=== PATIENT | male | born 1945 | race Caucasian/White ===

== ENCOUNTER 2021-03-02 07:42 | Inpatient (IN) ==
[2021-03-02] MEDS ORDERED: Naloxone 0.4 MG/ML INJ IVP PRN (09:48)
[2021-03-02] MEDS ORDERED: Ondansetron 4 MG/2 ML VIAL IVP PRN (09:48)
[2021-03-02 10:23] LABS: INR 1.2; Prothrombin Time 13.6 Seconds (9.4-12.1)
[2021-03-02] MEDS: Acetaminophen 325 MG TABLET PO PRN ×2 (11:43→22:06)
[2021-03-02] MEDS: Ringers Solution, Lactated 1,000 ML IVC SCH ×2 (13:18→19:12)
[2021-03-02] MEDS: Piperacillin/Tazobactam 3.375 GM in 0.9 % Sodium Chloride Mini Bag 100 ML IVPB SCH (15:28)
[2021-03-02] MEDS ORDERED: Dextrose Gel 15 GM/37.5 ML TUBE PO PRN ×2 (17:06)
[2021-03-02] MEDS ORDERED: *HR* Dextrose 50 % in Water (Vial) 50 ML VIAL IVP PRN (17:06)
[2021-03-02] MEDS ORDERED: D5% in Water 1,000 ML IVC PRN (17:06)
[2021-03-02] MEDS ORDERED: Ringers Solution, Lactated 1,000 ML IVC ONE (17:07)
[2021-03-02] MEDS: Lactobacillus 1 EACH CAP.SPRINK PO SCH (20:16)
[2021-03-02] MEDS ORDERED: Melatonin 3 MG TABLET PO PRN (21:00)
[2021-03-03] MEDS: Piperacillin/Tazobactam 3.375 GM in 0.9 % Sodium Chloride Mini Bag 100 ML IVPB SCH ×3 (00:15→17:32)
[2021-03-03] MEDS: *HR* Enoxaparin 40 MG/0.4 ML SYRINGE SQ SCH (05:49)
[2021-03-03 06:43] LABS: Basophils % 0.2 %; Eosinophils % 0.1 %; Hemoglobin 10.9 g/dL (12.9-16.9); Immature Granulocytes % 0.6 % (0-4); Lymphocytes # 0.9 K/mcL (0.6-4.6); Lymphocytes % 8.8 %; Mean Corpuscular HGB Conc 34.1 g/dL (31.6-35.5); Mean Corpuscular Hemoglobin 32.8 pg (28.0-33.3); Mean Corpuscular Volume 96.4 fL (83.0-100.0); Mean Platelet Volume 11.5 fL (9.4-12.4); Monocytes # 0.3 K/mcL (0.0-1.3); Monocytes % 2.8 %; Neutrophils # 8.9 K/mcL (1.6-8.9); Platelet Count 143 K/mcL (140-400); Red Blood Count 3.32 M/mcL (4.19-5.50); Red Cell Distribution Width 13.1 % (11.5-14.5); Segmented Neutrophils % 87.5 %; White Blood Count 10.2 K/mcL (4.3-11.1)
[2021-03-03 07:04] LABS: Alanine Aminotransferase 8 Units/L (7-52); Albumin 3.3 g/dL (3.5-5.7); Albumin/Globulin Ratio 1.4 (1.1-2.2); Alkaline Phosphatase 78 Units/L (34-104); Aspartate Amino Transferase 12 Units/L (13-39); BUN/Creatinine Ratio 15 (6-26); Bilirubin,Total 1.6 mg/dL (0.3-1.0); Blood Urea Nitrogen 12 mg/dL (8-23); Calcium 7.8 mg/dL (8.6-10.3); Carbon Dioxide 24 mEq/L (23-29); Chloride 106 mEq/L (98-107); Globulin 2.3 g/dL (2.4-3.5); Glucose 92 mg/dL (70-105); Magnesium 1.9 mg/dL (1.6-2.6); Osmolality,Calculated 281 (280-300); Phosphorous 1.2 mg/dL (2.7-4.5); Potassium 3.1 mEq/L (3.5-5.1); Sodium 136 mEq/L (136-145); Total Protein 5.6 g/dL (6.4-8.9); eGFR For African Americans > 60 (> 60); eGFR For Non-African Americans > 60 (> 60)
[2021-03-03] MEDS: Acetaminophen 325 MG TABLET PO PRN (07:15)
[2021-03-03 07:21] LABS: Folate 12.7 ng/mL (3.0-16.0)
[2021-03-03] MEDS ORDERED: *HR* Midazolam HCl 2 MG/2 ML VIAL ONE (07:33)
[2021-03-03] MEDS ORDERED: *HR* Rocuronium Bromide 50 MG/5 ML VIAL ONE (07:33)
[2021-03-03] MEDS ORDERED: *HR* FentaNYL (PF) 100 MCG/2 ML VIAL ONE (07:33)
[2021-03-03] MEDS ORDERED: Lidocaine -MPF 2% 2 ML VIAL ONE (07:33)
[2021-03-03] MEDS ORDERED: Lidocaine HCL 4 ML Topical Solution (Laryng-O-Jet Kit Sterile Pak) TP ONE (07:33)
[2021-03-03] MEDS ORDERED: Ondansetron 4 MG/2 ML VIAL ONE (07:33)
[2021-03-03] MEDS ORDERED: *HR* Propofol 200 MG/20 ML VIAL IVP ONE (07:33)
[2021-03-03] MEDS ORDERED: *HR* Succinylcholine 200 MG/10 ML VIAL IVP ONE (07:33)
[2021-03-03 07:39] LABS: Platelet Estimate Slight Decrease (Normal)
[2021-03-03 07:42] LABS: INR 1.4; Prothrombin Time 16.4 Seconds (9.4-12.1)
[2021-03-03] MEDS ORDERED: Bupivacaine 0.5%-Epi 1:200,000 50 ML VIAL ONE (08:28)
[2021-03-03] MEDS ORDERED: Albuterol 2.5 MG/3 ML NEBULIZER IH ONE (08:40)
[2021-03-03] MEDS ORDERED: Albuterol 2.5 MG/3 ML NEBULIZER IH PRN (08:41)
[2021-03-03] MEDS ORDERED: *HR* FentaNYL (PF) 100 MCG/2 ML VIAL IVP PRN (08:41)
[2021-03-03] MEDS ORDERED: Ondansetron 4 MG/2 ML VIAL IVP PRN (08:41)
[2021-03-03] MEDS ORDERED: Albuterol 2.5 MG/3 ML NEBULIZER ONE (08:46)
[2021-03-03] MEDS ORDERED: lisinopriL 5 MG TABLET PO SCH (09:00)
[2021-03-03] MEDS ORDERED: EPHEDrine 50 MG/ML VIAL ONE (09:16)
[2021-03-03] MEDS ORDERED: Sugammadex Sodium 200 MG/2 ML VIAL IV ONE (09:50)
[2021-03-03 10:38] LABS: Troponin I 0.05 ng/mL (< 0.04)
[2021-03-03 11:20] LABS: BUN/Creatinine Ratio 16 (6-26); Blood Urea Nitrogen 12 mg/dL (8-23); Calcium 7.4 mg/dL (8.6-10.3); Carbon Dioxide 22 mEq/L (23-29); Chloride 107 mEq/L (98-107); Glucose 105 mg/dL (70-105); Magnesium 2.5 mg/dL (1.6-2.6); Osmolality,Calculated 284 (280-300); Potassium 2.9 mEq/L (3.5-5.1); Sodium 137 mEq/L (136-145); eGFR For African Americans > 60 (> 60); eGFR For Non-African Americans > 60 (> 60)
[2021-03-03 11:28] LABS: Troponin I < 0.03 ng/mL (< 0.04)
[2021-03-03] MEDS: Nicotine 21 MG PATCH.TD24 TD SCH (13:05)
[2021-03-03] MEDS: Lactobacillus 1 EACH CAP.SPRINK PO SCH ×2 (13:05→22:05)
[2021-03-03] MEDS: (Abiraterone Acetate [Zytiga] 250 MG Tablet) PO SCH (13:06)
[2021-03-04] MEDS: Piperacillin/Tazobactam 3.375 GM in 0.9 % Sodium Chloride Mini Bag 100 ML IVPB SCH ×3 (00:58→16:20)
[2021-03-04] MEDS: *HR* Enoxaparin 40 MG/0.4 ML SYRINGE SQ SCH (04:52)
[2021-03-04 06:12] LABS: Basophils % 0.1 %; Hematocrit 26.1 % (37.5-50.1); Hemoglobin 8.8 g/dL (12.9-16.9); Immature Granulocytes % 0.8 % (0-4); Immature Platelets 6.5 % (1.1-6.1); Lymphocytes # 0.4 K/mcL (0.6-4.6); Lymphocytes % 3.6 %; Mean Corpuscular HGB Conc 33.7 g/dL (31.6-35.5); Mean Corpuscular Hemoglobin 33.1 pg (28.0-33.3); Mean Corpuscular Volume 98.1 fL (83.0-100.0); Mean Platelet Volume 11.4 fL (9.4-12.4); Monocytes # 0.4 K/mcL (0.0-1.3); Neutrophils # 9.7 K/mcL (1.6-8.9); Platelet Count 138 K/mcL (140-400); Red Blood Count 2.66 M/mcL (4.19-5.50); Red Cell Distribution Width 13.2 % (11.5-14.5); Segmented Neutrophils % 91.5 %; White Blood Count 10.6 K/mcL (4.3-11.1)
[2021-03-04 06:33] LABS: Alanine Aminotransferase 9 Units/L (7-52); Albumin/Globulin Ratio 1.3 (1.1-2.2); Alkaline Phosphatase 68 Units/L (34-104); Aspartate Amino Transferase 12 Units/L (13-39); BUN/Creatinine Ratio 17 (6-26); Bilirubin,Total 0.8 mg/dL (0.3-1.0); Blood Urea Nitrogen 13 mg/dL (8-23); Calcium 7.5 mg/dL (8.6-10.3); Carbon Dioxide 25 mEq/L (23-29); Chloride 108 mEq/L (98-107); Globulin 2.3 g/dL (2.4-3.5); Glucose 145 mg/dL (70-105); Osmolality,Calculated 289 (280-300); Potassium 3.4 mEq/L (3.5-5.1); Sodium 138 mEq/L (136-145); Total Protein 5.3 g/dL (6.4-8.9); eGFR For African Americans > 60 (> 60); eGFR For Non-African Americans > 60 (> 60)
[2021-03-04] MEDS ORDERED: Potassium Chloride Elixir 20 MEQ/15 ML UDC PO ONE (08:13)
[2021-03-04] MEDS: Lactobacillus 1 EACH CAP.SPRINK PO SCH (09:34)
[2021-03-04] MEDS: Nicotine 21 MG PATCH.TD24 TD SCH (09:46)
[2021-03-04 12:20] LABS: Hematocrit 27.8 % (37.5-50.1); Hemoglobin 9.4 g/dL (12.9-16.9)
[2021-03-04] MEDS ORDERED: Potassium Phosphate 44 MEQ in 0.9 % Sodium Chloride 250 ML IVPB ONE (12:50)
[2021-03-04] MEDS: (Abiraterone Acetate [Zytiga] 250 MG Tablet) PO SCH (13:07)
[2021-03-04 15:38] LABS: Amorphous Sediment,Urine Few per hpf (None-Few); Bacteria,Urine Few per hpf (None-Few); Bilirubin,Urine Negative (Negative); Blood,Urine Small (Negative); Clarity,Urine Clear (Clear); Color,Urine Yellow (Yellow); Glucose,Urine (UA) 30 mg/dL (Normal); Ketones,Urine Trace mg/dL (Negative); Leukocyte Esterase,Urine Negative (Negative); Nitrite,Urine Negative (Negative); Protein,Urine 100 mg/dL (Neg-Trace); RBC,Urine 0-3 per hpf (0-3); Specific Gravity,Urine > 1.030 (1.010-1.025); Squamous Epithelial Cell,Urine Few per hpf (None-Few); Urobilinogen,Urine >=8.0 mg/dL (Normal); WBC,Urine 0-3 per hpf (0-3)
[2021-03-05] MEDS ORDERED: Potassium Phosphate 44 MEQ in 0.9 % Sodium Chloride 250 ML IVPB ONE (00:55)
[2021-03-05 03:19] LABS: Basophils % 0.1 %; Eosinophils # 0.1 K/mcL (0.0-0.6); Eosinophils % 0.7 %; Hematocrit 26.2 % (37.5-50.1); Hemoglobin 8.7 g/dL (12.9-16.9); Immature Granulocytes % 0.6 % (0-4); Lymphocytes # 1.2 K/mcL (0.6-4.6); Lymphocytes % 12.4 %; Mean Corpuscular HGB Conc 33.2 g/dL (31.6-35.5); Mean Corpuscular Hemoglobin 32.1 pg (28.0-33.3); Mean Corpuscular Volume 96.7 fL (83.0-100.0); Mean Platelet Volume 11.7 fL (9.4-12.4); Monocytes # 0.5 K/mcL (0.0-1.3); Monocytes % 5.4 %; Neutrophils # 7.6 K/mcL (1.6-8.9); Platelet Count 139 K/mcL (140-400); Red Blood Count 2.71 M/mcL (4.19-5.50); Red Cell Distribution Width 13.2 % (11.5-14.5); Segmented Neutrophils % 80.8 %; White Blood Count 9.4 K/mcL (4.3-11.1)
[2021-03-05] MEDS: Piperacillin/Tazobactam 3.375 GM in 0.9 % Sodium Chloride Mini Bag 100 ML IVPB SCH ×3 (03:43→17:21)
[2021-03-05] MEDS: Lactobacillus 1 EACH CAP.SPRINK PO SCH ×3 (03:44→23:23)
[2021-03-05 03:52] LABS: BUN/Creatinine Ratio 23 (6-26); Blood Urea Nitrogen 14 mg/dL (8-23); Calcium 7.4 mg/dL (8.6-10.3); Carbon Dioxide 22 mEq/L (23-29); Chloride 110 mEq/L (98-107); Glucose 100 mg/dL (70-105); Magnesium 2.4 mg/dL (1.6-2.6); Osmolality,Calculated 287 (280-300); Phosphorous 1.6 mg/dL (2.7-4.5); Potassium 3.8 mEq/L (3.5-5.1); Sodium 138 mEq/L (136-145); eGFR For African Americans > 60 (> 60); eGFR For Non-African Americans > 60 (> 60)
[2021-03-05] MEDS: *HR* Enoxaparin 40 MG/0.4 ML SYRINGE SQ SCH (05:30)
[2021-03-05] MEDS ORDERED: Iron Sucrose Complex 200 MG in 0.9 % Sodium Chloride 100 ML IVPB ONE (08:27)
[2021-03-05] MEDS: Nicotine 21 MG PATCH.TD24 TD SCH (12:08)
[2021-03-05] MEDS: (Abiraterone Acetate [Zytiga] 250 MG Tablet) PO SCH (12:08)
[2021-03-05] MEDS ORDERED: PREDNISONE 5 MG PO SCH (17:00)
[2021-03-05] MEDS: predniSONE 5 MG TABLET PO SCH (17:21)
[2021-03-06 03:20] LABS: Basophils % 0.2 %; Eosinophils # 0.2 K/mcL (0.0-0.6); Hematocrit 28.4 % (37.5-50.1); Hemoglobin 9.2 g/dL (12.9-16.9); Immature Granulocytes % 0.6 % (0-4); Lymphocytes # 1.4 K/mcL (0.6-4.6); Lymphocytes % 16.1 %; Mean Corpuscular HGB Conc 32.4 g/dL (31.6-35.5); Mean Corpuscular Hemoglobin 31.9 pg (28.0-33.3); Mean Corpuscular Volume 98.6 fL (83.0-100.0); Mean Platelet Volume 11.7 fL (9.4-12.4); Monocytes # 0.7 K/mcL (0.0-1.3); Monocytes % 7.8 %; Neutrophils # 6.2 K/mcL (1.6-8.9); Platelet Count 177 K/mcL (140-400); Red Blood Count 2.88 M/mcL (4.19-5.50); Red Cell Distribution Width 13.2 % (11.5-14.5); Segmented Neutrophils % 73.3 %; White Blood Count 8.5 K/mcL (4.3-11.1)
[2021-03-06 03:39] LABS: BUN/Creatinine Ratio 19 (6-26); Blood Urea Nitrogen 14 mg/dL (8-23); Carbon Dioxide 23 mEq/L (23-29); Chloride 109 mEq/L (98-107); Glucose 99 mg/dL (70-105); Osmolality,Calculated 289 (280-300); Phosphorous 3.1 mg/dL (2.7-4.5); Potassium 4.2 mEq/L (3.5-5.1); Sodium 139 mEq/L (136-145); eGFR For African Americans > 60 (> 60); eGFR For Non-African Americans > 60 (> 60)
[2021-03-06] MEDS ORDERED: *HR* OxyCODONE/APAP 5/325 TABLET PO PRN (06:46)
[2021-03-06] MEDS ORDERED: polyethylene glycoL 3350 17 GM POWD.PACK PO SCH (09:00)
[2021-03-06] MEDS ORDERED: Bisacodyl 10 MG RECTAL SUPPOSITORY RC SCH (09:00)
[2021-03-06] MEDS: Piperacillin/Tazobactam 3.375 GM in 0.9 % Sodium Chloride Mini Bag 100 ML IVPB SCH ×2 (09:01→09:05)
[2021-03-06] MEDS: predniSONE 5 MG TABLET PO SCH ×2 (09:05→16:27)
[2021-03-06] MEDS: Lactobacillus 1 EACH CAP.SPRINK PO SCH (09:05)
[2021-03-06] MEDS: Nicotine 21 MG PATCH.TD24 TD SCH (09:05)
[2021-03-06] MEDS: (Abiraterone Acetate [Zytiga] 250 MG Tablet) PO SCH (09:06)
[2021-03-06 09:36] VITALS: O2SAT 96
[2021-03-06 15:28] VITALS: BP 110/57; PULSE 53; TEMP 97.8
== END 2021-03-06 17:56 | disposition home or self-care (01) | DRG 853 ==
LOC: 3ANU → SUATTDRO 12:14
PROVIDERS: ADMIT Internal Medicine; ATTEND Internal Medicine

== ENCOUNTER 2021-06-23 10:23 | Inpatient (IN) ==
[2021-06-23] MEDS ORDERED: cefOXitin 2,000 MG in Water for inj. (sterile) 10 ML IVP ONE (10:48)
[2021-06-23] MEDS ORDERED: Ringers Solution, Lactated 1,000 ML IVC SCH ×2 (11:00→11:15)
[2021-06-23] MEDS ORDERED: Ondansetron 4 MG/2 ML VIAL IVP PRN ×2 (11:06→17:36)
[2021-06-23] MEDS ORDERED: Acetaminophen IV 1,000 MG/100 ML BAG IVPB PRN (11:06)
[2021-06-23] MEDS ORDERED: Ondansetron 4 MG/2 ML VIAL ONE (12:14)
[2021-06-23] MEDS ORDERED: Lidocaine -MPF 2% 5 ML VIAL ONE (12:14)
[2021-06-23] MEDS ORDERED: *HR* Propofol 200 MG/20 ML VIAL IVP ONE (12:14)
[2021-06-23] MEDS ORDERED: *HR* FentaNYL (PF) 100 MCG/2 ML VIAL ONE ×2 (12:14→15:10)
[2021-06-23] MEDS ORDERED: *HR* Rocuronium Bromide 50 MG/5 ML VIAL ONE ×2 (12:14→14:35)
[2021-06-23] MEDS ORDERED: EPHEDrine 50 MG/ML VIAL ONE (13:26)
[2021-06-23] MEDS ORDERED: Sugammadex Sodium 200 MG/2 ML VIAL IV ONE (16:14)
[2021-06-23] MEDS ORDERED: Ketorolac 30 MG/ML VIAL ONE (16:22)
[2021-06-23] MEDS: *HR* FentaNYL (PF) 100 MCG/2 ML VIAL IVP PRN ×4 (16:35→17:00)
[2021-06-23] MEDS ORDERED: Naloxone 0.4 MG/ML INJ IVP PRN (17:36)
[2021-06-23] MEDS: 0.9 % Sodium Chloride 1,000 ML IVC SCH (17:51)
[2021-06-23] MEDS: predniSONE 5 MG TABLET PO SCH (18:41)
[2021-06-23] MEDS: Morphine Sulfate Oral CONC 10 MG/0.5 ML ORAL.SYG SL PRN (20:15)
[2021-06-23] MEDS: cefOXitin 1,000 MG in Water for inj. (sterile) 10 ML IVP SCH (21:13)
[2021-06-24] MEDS: Morphine Sulfate Oral CONC 10 MG/0.5 ML ORAL.SYG SL PRN ×3 (00:49→20:39)
[2021-06-24 03:06] LABS: Basophils % 0.1 %; Hematocrit 32.4 % (37.5-50.1); Immature Granulocytes % 0.2 % (0-4); Lymphocytes # 0.5 K/mcL (0.6-4.6); Mean Corpuscular Hemoglobin 32.7 pg (28.0-33.3); Mean Corpuscular Volume 96.4 fL (83.0-100.0); Mean Platelet Volume 11.2 fL (9.4-12.4); Monocytes # 0.8 K/mcL (0.0-1.3); Monocytes % 6.4 %; Platelet Count 176 K/mcL (140-400); Red Blood Count 3.36 M/mcL (4.19-5.50); Red Cell Distribution Width 13.8 % (11.5-14.5); Segmented Neutrophils % 89.3 %; White Blood Count 12.4 K/mcL (4.3-11.1)
[2021-06-24 03:19] LABS: BUN/Creatinine Ratio 18 (6-26); Blood Urea Nitrogen 14 mg/dL (8-23); Calcium 7.8 mg/dL (8.6-10.3); Carbon Dioxide 23 mEq/L (23-29); Chloride 107 mEq/L (98-107); Glucose 147 mg/dL (70-105); Osmolality,Calculated 285 (280-300); Potassium 4.1 mEq/L (3.5-5.1); Sodium 136 mEq/L (136-145); eGFR For African Americans > 60 (> 60); eGFR For Non-African Americans > 60 (> 60)
[2021-06-24] MEDS: cefOXitin 1,000 MG in Water for inj. (sterile) 10 ML IVP SCH ×3 (06:03→20:39)
[2021-06-24] MEDS: 0.9 % Sodium Chloride 1,000 ML IVC SCH ×2 (06:04→20:41)
[2021-06-24] MEDS: lisinopriL 10 MG TABLET PO SCH (08:24)
[2021-06-24] MEDS: predniSONE 5 MG TABLET PO SCH ×2 (08:24→16:13)
[2021-06-24] MEDS: *HR* Heparin 5,000 UNIT/ML VIAL SQ SCH (16:12)
[2021-06-24] MEDS: *HR* OxyCODONE/APAP 5/325 TABLET PO PRN (22:56)
[2021-06-25] MEDS: Morphine Sulfate Oral CONC 10 MG/0.5 ML ORAL.SYG SL PRN ×2 (00:50→04:50)
[2021-06-25] MEDS: cefOXitin 1,000 MG in Water for inj. (sterile) 10 ML IVP SCH ×3 (04:47→20:15)
[2021-06-25] MEDS: *HR* Heparin 5,000 UNIT/ML VIAL SQ SCH ×2 (04:48→17:12)
[2021-06-25] MEDS: 0.9 % Sodium Chloride 1,000 ML IVC SCH ×2 (05:58→19:20)
[2021-06-25] MEDS: lisinopriL 10 MG TABLET PO SCH (07:55)
[2021-06-25] MEDS: *HR* OxyCODONE/APAP 5/325 TABLET PO PRN (07:56)
[2021-06-25] MEDS: predniSONE 5 MG TABLET PO SCH ×2 (07:56→17:12)
[2021-06-25] MEDS ORDERED: Ketorolac 30 MG/ML VIAL IVP ONE (09:24)
[2021-06-25] MEDS ORDERED: Scopolamine Patch 1.5 MG PATCH.TD72 TD ONE (09:52)
[2021-06-25] MEDS: Acetaminophen IV 1,000 MG/100 ML BAG IVPB SCH ×3 (12:35→23:37)
[2021-06-26] MEDS: cefOXitin 1,000 MG in Water for inj. (sterile) 10 ML IVP SCH (05:45)
[2021-06-26] MEDS: Acetaminophen IV 1,000 MG/100 ML BAG IVPB SCH (06:03)
[2021-06-26] MEDS: *HR* Heparin 5,000 UNIT/ML VIAL SQ SCH (06:07)
[2021-06-26] MEDS ORDERED: Ibuprofen 400 MG TABLET PO ONE (07:30)
[2021-06-26 07:31] VITALS: PULSE 50; TEMP 98.8
[2021-06-26] MEDS: predniSONE 5 MG TABLET PO SCH (07:46)
[2021-06-26 09:18] LABS: Basophils % 0.5 %; Eosinophils # 0.3 K/mcL (0.0-0.6); Eosinophils % 3.8 %; Hematocrit 28.1 % (37.5-50.1); Immature Granulocytes % 0.4 % (0-4); Lymphocytes # 1.5 K/mcL (0.6-4.6); Lymphocytes % 18.6 %; Mean Corpuscular HGB Conc 33.5 g/dL (31.6-35.5); Mean Corpuscular Hemoglobin 32.8 pg (28.0-33.3); Mean Corpuscular Volume 97.9 fL (83.0-100.0); Mean Platelet Volume 11.2 fL (9.4-12.4); Monocytes # 0.4 K/mcL (0.0-1.3); Monocytes % 5.4 %; Neutrophils # 5.6 K/mcL (1.6-8.9); Platelet Count 145 K/mcL (140-400); Red Blood Count 2.87 M/mcL (4.19-5.50); Red Cell Distribution Width 13.8 % (11.5-14.5); Segmented Neutrophils % 71.3 %; White Blood Count 7.8 K/mcL (4.3-11.1)
[2021-06-26] MEDS: lisinopriL 10 MG TABLET PO SCH (09:20)
[2021-06-26 09:23] LABS: Hemoglobin 9.4 g/dL (12.9-16.9)
[2021-06-26 09:37] LABS: BUN/Creatinine Ratio 15 (6-26); Blood Urea Nitrogen 11 mg/dL (8-23); Carbon Dioxide 25 mEq/L (23-29); Chloride 108 mEq/L (98-107); Glucose 132 mg/dL (70-105); Magnesium 1.9 mg/dL (1.6-2.6); Osmolality,Calculated 287 (280-300); Phosphorous 1.9 mg/dL (2.7-4.5); Potassium 3.6 mEq/L (3.5-5.1); Sodium 138 mEq/L (136-145); eGFR For African Americans > 60 (> 60); eGFR For Non-African Americans > 60 (> 60)
[2021-06-26 11:55] VITALS: BP 117/62; O2SAT 94
== END 2021-06-26 13:08 | disposition home or self-care (01) | DRG 330 ==
LOC: SAMDAY 10:23 → 3ANU 17:26
PROVIDERS: ADMIT Surgery; ATTEND Surgery

== ENCOUNTER 2022-04-21 16:47 | Observation (INO) ==
[2022-04-21] MEDS ORDERED: Iopamidol - 370 500 ML MLS IVP ONE (17:22)
[2022-04-21 17:42] LABS: VBG HCO3 27 mEq/L (21-27); VBG PCO2 48 mmHg (41-51); VBG PH 7.36 pH Units (7.32-7.42); VBG PO2 44 mmHg (25-50)
[2022-04-21 17:47] LABS: Basophils % 0.5 %; Eosinophils # 0.3 K/mcL (0.0-0.6); Eosinophils % 3.4 %; Hematocrit 32.1 % (37.5-50.1); Hemoglobin 10.3 g/dL (12.9-16.9); Immature Granulocytes % 0.5 % (0-4); Lymphocytes # 1.2 K/mcL (0.6-4.6); Mean Corpuscular HGB Conc 32.1 g/dL (31.6-35.5); Mean Corpuscular Hemoglobin 30.7 pg (28.0-33.3); Mean Corpuscular Volume 95.5 fL (83.0-100.0); Mean Platelet Volume 11.9 fL (9.4-12.4); Monocytes # 0.9 K/mcL (0.0-1.3); Monocytes % 10.8 %; Neutrophils # 5.8 K/mcL (1.6-8.9); Platelet Count 154 K/mcL (140-400); Red Blood Count 3.36 M/mcL (4.19-5.50); Red Cell Distribution Width 14.6 % (11.5-14.5); Segmented Neutrophils % 69.8 %; White Blood Count 8.3 K/mcL (4.3-11.1)
[2022-04-21 18:30] LABS: BUN/Creatinine Ratio 17 (6-26); Blood Urea Nitrogen 12 mg/dL (8-23); Calcium 8.6 mg/dL (8.6-10.3); Carbon Dioxide 24 mEq/L (23-29); Chloride 107 mEq/L (98-107); Glucose 90 mg/dL (70-105); Magnesium 2.2 mg/dL (1.6-2.6); Osmolality,Calculated 287 (280-300); Potassium 3.3 mEq/L (3.5-5.1); Sodium 139 mEq/L (136-145); Troponin I 0.04 ng/mL (< 0.04)
[2022-04-21] MEDS ORDERED: DilTIAZem 50 MG/50 ML IV.SOLN IVC SCH (19:00)
[2022-04-21] MEDS ORDERED: Furosemide 20 MG/2 ML VIAL IVP ONE (20:08)
[2022-04-21] MEDS ORDERED: Naloxone 0.4 MG/ML INJ IVP PRN (20:59)
[2022-04-21] MEDS ORDERED: Ondansetron 4 MG/2 ML VIAL IVP PRN (20:59)
[2022-04-21] MEDS ORDERED: Acetaminophen 325 MG TABLET PO PRN (20:59)
[2022-04-21] MEDS ORDERED: Melatonin 3 MG TABLET PO PRN (20:59)
[2022-04-22] MEDS ORDERED: *HR* Heparin 5,000 UNIT/ML VIAL IVP PRN ×2 (01:43)
[2022-04-22] MEDS ORDERED: *HR* Heparin 5,000 UNIT/ML VIAL IVP ONE (01:43)
[2022-04-22] MEDS ORDERED: Aspirin 325 MG TABLET PO ONE (01:52)
[2022-04-22 03:17] LABS: INR 1.4; Prothrombin Time 15.1 Seconds (9.4-12.1)
[2022-04-22 03:20] LABS: Activated Partial Thrombo Time 30.3 Seconds (26.0-36.0); Heparin anti-factor XA UFH < 0.04 IU/mL (0.30-0.70)
[2022-04-22] MEDS: Heparin 25,000UNIT/250ML 1/2NS 25,000 UNIT/250 ML IV.SOLN IVC SCH (03:45)
[2022-04-22 05:01] LABS: Hematocrit 32.1 % (37.5-50.1); Hemoglobin 10.6 g/dL (12.9-16.9); Mean Corpuscular Hemoglobin 31.4 pg (28.0-33.3); Mean Platelet Volume 11.8 fL (9.4-12.4); Platelet Count 153 K/mcL (140-400); Red Blood Count 3.38 M/mcL (4.19-5.50); Red Cell Distribution Width 14.6 % (11.5-14.5); White Blood Count 9.8 K/mcL (4.3-11.1)
[2022-04-22 05:09] LABS: BUN/Creatinine Ratio 21 (6-26); Blood Urea Nitrogen 15 mg/dL (8-23); Calcium 8.6 mg/dL (8.6-10.3); Carbon Dioxide 24 mEq/L (23-29); Chloride 107 mEq/L (98-107); Glucose 92 mg/dL (70-105); Osmolality,Calculated 288 (280-300); Potassium 3.5 mEq/L (3.5-5.1); Sodium 139 mEq/L (136-145)
[2022-04-22] MEDS: Furosemide 20 MG/2 ML VIAL IVP SCH (13:04)
[2022-04-22] MEDS: DilTIAZem CD (24hr) 120 MG CAP.ER.24H PO SCH (13:04)
[2022-04-22 13:20] LABS: Chol/HDL Ratio 3.2 (0-4.9); Troponin I 0.03 ng/mL (< 0.04)
[2022-04-22 13:34] LABS: Thyroid Stimulating Hormone 1.529 mcIU/mL (0.340-5.600)
[2022-04-22 14:20] LABS: Estimated Average Glucose 103 mg/dl; Hemoglobin A1C 5.2 %
[2022-04-23] MEDS: Heparin 25,000UNIT/250ML 1/2NS 25,000 UNIT/250 ML IV.SOLN IVC SCH (02:16)
[2022-04-23 04:12] LABS: Basophils % 0.3 %; Eosinophils # 0.3 K/mcL (0.0-0.6); Eosinophils % 3.4 %; Hematocrit 28.7 % (37.5-50.1); Hemoglobin 9.1 g/dL (12.9-16.9); Immature Granulocytes % 0.2 % (0-4); Lymphocytes # 1.5 K/mcL (0.6-4.6); Lymphocytes % 15.8 %; Mean Corpuscular HGB Conc 31.7 g/dL (31.6-35.5); Mean Corpuscular Hemoglobin 30.4 pg (28.0-33.3); Mean Platelet Volume 11.3 fL (9.4-12.4); Monocytes # 0.7 K/mcL (0.0-1.3); Monocytes % 7.5 %; Neutrophils # 6.8 K/mcL (1.6-8.9); Platelet Count 155 K/mcL (140-400); Red Blood Count 2.99 M/mcL (4.19-5.50); Red Cell Distribution Width 14.8 % (11.5-14.5); Segmented Neutrophils % 72.8 %; White Blood Count 9.3 K/mcL (4.3-11.1)
[2022-04-23 04:39] LABS: BUN/Creatinine Ratio 27 (6-26); Blood Urea Nitrogen 23 mg/dL (8-23); Calcium 7.7 mg/dL (8.6-10.3); Carbon Dioxide 19 mEq/L (23-29); Chloride 105 mEq/L (98-107); Glucose 128 mg/dL (70-105); Magnesium 2.2 mg/dL (1.6-2.6); Osmolality,Calculated 285 (280-300); Potassium 3.3 mEq/L (3.5-5.1); Sodium 135 mEq/L (136-145)
[2022-04-23] MEDS ORDERED: Aspirin 81 MG TAB.CHEW PO SCH (09:00)
[2022-04-23] MEDS: DilTIAZem CD (24hr) 120 MG CAP.ER.24H PO SCH (09:25)
[2022-04-23] MEDS: Furosemide 20 MG/2 ML VIAL IVP SCH (09:25)
[2022-04-23 10:55] VITALS: BP 110/58; PULSE 68; TEMP 99.3; O2SAT 93
[2022-04-23] MEDS ORDERED: *HR* Rivaroxaban 10 MG TABLET PO SCH (17:00)
== END 2022-04-23 15:30 | disposition home or self-care (01) ==
LOC: 3NENU 16:47 → EMEROOARM 16:47 → SUATTDRO 21:00 → 3NENU 21:45
PROVIDERS: ADMIT Internal Medicine; ATTEND Registered Nurse